=== PATIENT | female | born 1945 | race Two or more races ===

== ENCOUNTER 2017-06-23 11:24 | Outpatient (CLI) | payer OTHER ==
[~2017-06-23 11:24] MED LIST: TENORMIN50 M1; ZANTAC 7575 MG
== END 2017-06-23 11:40 | disposition home or self-care (01) ==
LOC: MAMO-SONO 11:24
DX: Z12.31 Encounter for screening mammogram for malignant neoplasm of breast (principal); Z87.898 Personal history of other specified conditions; N64.89 Other specified disorders of breast; N64.4 Mastodynia; N60.11 Diffuse cystic mastopathy of right breast

== ENCOUNTER 2019-05-03 13:41 | Outpatient (CLI) | payer OTHER | END 2019-05-03 13:47 | disposition home or self-care (01) | LOC: MAMO-SONO 13:41 | DX: Z12.31 Encounter for screening mammogram for malignant neoplasm of breast (principal); Z87.898 Personal history of other specified conditions; Z64.4 Discord with counselors; N60.11 Diffuse cystic mastopathy of right breast; N63.10 Unspecified lump in the right breast, unspecified quadrant; N63.20 Unspecified lump in the left breast, unspecified quadrant ==

== ENCOUNTER 2021-06-13 08:00 | Outpatient (CLI) | payer OTHER | END 2021-06-13 08:30 | disposition home or self-care (01) | LOC: PPH VACUNA 08:00 | PROVIDERS: ATTEND Emergency Medicine Pediatric Emergency Medicine | DX: Z23 Encounter for immunization (principal) ==

== ENCOUNTER 2021-08-06 08:28 | Outpatient (CLI) | payer OTHER | END 2021-08-06 08:35 | disposition home or self-care (01) | LOC: RX STUDY 08:28 | PROVIDERS: ATTEND Internal Medicine Gastroenterology | DX: K22.0 Achalasia of cardia (principal); R13.10 Dysphagia, unspecified ==

== ENCOUNTER 2022-06-20 13:15 | Outpatient (CLI) | payer OTHER | END 2022-06-20 13:35 | disposition home or self-care (01) | LOC: MAMO-SONO 13:15 | PROVIDERS: ATTEND Obstetrics & Gynecology | DX: N60.11 Diffuse cystic mastopathy of right breast (principal) ==

== ENCOUNTER 2023-04-24 09:00 | Outpatient (CLI) | payer OTHER | END 2023-04-24 09:01 | disposition home or self-care (01) | LOC: NUCLEAR 09:00 | DX: M15.0 Primary generalized (osteo)arthritis (principal) | CPT/HCPCS: 78315; A9503 ==

== ENCOUNTER 2023-05-09 11:11 | Outpatient (CLI) | payer OTHER | END 2023-05-09 11:15 | disposition home or self-care (01) | LOC: SONOGRAMA 11:11 | PROVIDERS: ATTEND Obstetrics & Gynecology Maternal & Fetal Medicine | DX: R10.2 Pelvic and perineal pain (principal) ==

== ENCOUNTER 2023-08-27 10:34 | Outpatient (CLI) | payer OTHER | END 2023-08-27 10:37 | disposition home or self-care (01) | LOC: SONOGRAMA 10:34 | PROVIDERS: ATTEND Obstetrics & Gynecology Maternal & Fetal Medicine | DX: R10.2 Pelvic and perineal pain (principal) ==

== ENCOUNTER 2023-09-11 15:11 | Outpatient (CLI) | payer OTHER | END 2023-09-11 15:20 | disposition home or self-care (01) | LOC: MRI 15:11 | PROVIDERS: ATTEND Specialist | DX: M51.36 Other intervertebral disc degeneration, lumbar region (principal); M51.34 Other intervertebral disc degeneration, thoracic region | CPT/HCPCS: 72148 ==

== ENCOUNTER 2023-09-23 13:48 | Outpatient (CLI) | payer OTHER | END 2023-09-23 13:54 | disposition home or self-care (01) | LOC: TOM 13:48 | PROVIDERS: ATTEND Specialist | DX: R91.1 Solitary pulmonary nodule (principal); D86.9 Sarcoidosis, unspecified ==

== ENCOUNTER 2023-10-08 08:13 | Outpatient (CLI) | payer OTHER | END 2023-10-08 08:15 | disposition home or self-care (01) | LOC: NUCLEAR 08:13 | PROVIDERS: ATTEND Specialist | DX: D38.5 Neoplasm of uncertain behavior of other respiratory organs (principal) | CPT/HCPCS: 78815; A9552 ==

== ENCOUNTER → 2023-12-22 13:28 | Outpatient (CLI) | payer OTHER | END | disposition home or self-care (01) | LOC: NUCLEAR 13:28 | PROVIDERS: ATTEND Specialist | DX: M81.0 Age-related osteoporosis without current pathological fracture (principal) ==

== ENCOUNTER 2024-03-25 15:49 | Outpatient (CLI) | payer OTHER | END 2024-03-25 15:54 | disposition home or self-care (01) | LOC: RAD 15:49 | PROVIDERS: ATTEND Specialist | DX: M17.0 Bilateral primary osteoarthritis of knee (principal) ==

== ENCOUNTER 2024-03-29 13:03 | Outpatient (CLI) | payer OTHER | END 2024-03-29 13:15 | disposition home or self-care (01) | LOC: TOM 13:03 | DX: C7A.090 Malignant carcinoid tumor of the bronchus and lung (principal) ==

== ENCOUNTER 2024-09-07 09:38 | Outpatient (CLI) | payer OTHER | END 2024-09-07 09:57 | disposition home or self-care (01) | LOC: TOM 09:38 | DX: K57.32 Diverticulitis of large intestine without perforation or abscess without bleeding (principal); C7A.090 Malignant carcinoid tumor of the bronchus and lung; R94.2 Abnormal results of pulmonary function studies ==

== ENCOUNTER 2025-02-03 14:23 | Outpatient (CLI) | payer OTHER | END 2025-02-03 14:25 | disposition home or self-care (01) | LOC: TOM 14:23 | PROVIDERS: ATTEND Specialist | DX: C7A.090 Malignant carcinoid tumor of the bronchus and lung (principal) ==